=== PATIENT | female | born 1990 | race Two or more races ===

== ENCOUNTER 2019-01-08 15:53 | Inpatient (IN) | payer OTHER ==
[~2019-01-08] VITALS: Ht 165.1 cm; Wt 97.1 kg
[2019-01-30] MEDS ORDERED: OBSTETRIX ONE1 EACH PO (08:30)
== END 2019-02-01 11:59 | DRG 807 ==
LOC: OB/GYN 01-15 14:30 → LDR 01-29 14:56 → OB/GYN 01-30 16:27
PROVIDERS: ADMIT Obstetrics & Gynecology
PROC: 4A1HXCZ Monitoring of Products of Conception, Cardiac Rate, External Approach (ICD-10-PCS; 2019-01-29)
PROC: 10E0XZZ Delivery of Products of Conception, External Approach (ICD-10-PCS; principal; 2019-01-30)
PROC: 0UQMXZZ Repair Vulva, External Approach (ICD-10-PCS; 2019-01-30)
PROC: 4A033R1 Measurement of Arterial Saturation, Peripheral, Percutaneous Approach (ICD-10-PCS; 2019-01-30)
PROC: 3E0P7VZ Introduction of Hormone into Female Reproductive, Via Natural or Artificial Opening (ICD-10-PCS; 2019-01-30)
DX: O70.0 First degree perineal laceration during delivery (principal); Z37.0 Single live birth; Z3A.39 39 weeks gestation of pregnancy

== ENCOUNTER 2019-01-28 08:52 | Outpatient (CLI) | payer OTHER | END 2019-01-28 09:49 | disposition home or self-care (01) | LOC: NST 08:52 → OBS/DEL 08:52 → NST 09:49 | DX: Z34.83 Encounter for supervision of other normal pregnancy, third trimester (principal) ==

== ENCOUNTER 2021-07-06 13:49 | Inpatient (IN) | payer OTHER ==
[~2021-07-06] VITALS: Ht 162.6 cm; Wt 91.2 kg
[~2021-07-06 13:49] MED LIST: OBSTETRIX ONE1 EACH PO
== END 2021-07-23 11:30 | disposition home or self-care (01) | DRG 807 ==
LOC: LDR 13:49 → SURG-SUITE 07-21 06:18 → LDR 07-21 11:01 → SURG-SUITE 07-21 13:43
PROVIDERS: ADMIT Obstetrics & Gynecology; ATTEND Obstetrics & Gynecology
PROC: 10E0XZZ Delivery of Products of Conception, External Approach (ICD-10-PCS; principal; 2021-07-21)
PROC: 4A1HXCZ Monitoring of Products of Conception, Cardiac Rate, External Approach (ICD-10-PCS; 2021-07-21)
DX: O80 Encounter for full-term uncomplicated delivery (principal); Z37.0 Single live birth; Z3A.40 40 weeks gestation of pregnancy; Z20.822 Contact with and (suspected) exposure to COVID-19